=== PATIENT | female | born 1990 | race Hispanic/Latino ===

== ENCOUNTER → 2023-08-21 | Outpatient (CLI) | payer MEDICAID | END | disposition home or self-care (01) | LOC: LAB 15:39 | PROVIDERS: ATTEND Surgery | DX: E66.01 Morbid (severe) obesity due to excess calories (principal); G47.33 Obstructive sleep apnea (adult) (pediatric); M19.91 Primary osteoarthritis, unspecified site; E11.9 Type 2 diabetes mellitus without complications; J45.909 Unspecified asthma, uncomplicated; Z99.89 Dependence on other enabling machines and devices; Z68.43 Body mass index [BMI] 50.0-59.9, adult | CPT/HCPCS: 36415; 80053; 80061; 82306; 82607; 82746; 83036; 83540; 83550; 83735; 84207; 84425; 84436; 84443; 84481; 84590; 84630; 85025 ==

== ENCOUNTER → 2023-08-21 | Outpatient (CLI) | payer OTHER ==
[~2023-08-21] VITALS: Ht 2.5 cm; Wt 123.8 kg
[2023-08-21 11:37] LABS: BASOPHILS # (AUTO) 0.04 K/uL (0.00-0.20); BASOPHILS % (AUTO) 0.4 % (0.0-5.0); EOSINOPHILS # (AUTO) 0.16 K/uL (0.00-0.70); EOSINOPHILS % (AUTO) 1.7 % (0.0-8.0); IMMATURE GRANULOCYTE ABSOLUTE 0.02 K/uL (0-1); LYMPHOCYTES # (AUTO) 2.9 K/uL (1.0-4.8); LYMPHOCYTES % (AUTO) 31.1 % (21.0-51.0); MEAN CORPUSCULAR HEMOGLOBIN 25.8 pg (27.0-33.0); MEAN CORPUSCULAR HGB CONC 32.1 g/dL (32.0-36.0); MEAN CORPUSCULAR VOLUME 80.6 fL (79-99); MONOCYTES # (AUTO) 0.6 K/uL (0.1-1.0); MONOCYTES % (AUTO) 6.2 % (3.0-13.0); NEUTROPHILS # (AUTO) 5.5 K/uL (1.8-7.7); NEUTROPHILS % (AUTO) 60.4 % (40.0-77.0); PLATELET COUNT (AUTO) 292 K/uL (130-400); RED BLOOD CELL COUNT(AUTO) 4.84 MIL/uL (4.00-5.50); RED CELL DISTRIBUTION WIDTH 14.5 % (11.0-15.5); WHITE BLOOD COUNT (AUTO) 9.2 K/uL (4.8-10.8)
[2023-08-21 11:54] LABS: HEMOGLOBIN A1C 6.1 % (4.0-6.0)
[2023-08-21 12:04] LABS: % IRON SATURATION 8.8 % (22-44)
[2023-08-21 12:59] LABS: ALBUMIN 3.5 g/dL (3.5-5.0); BILIRUBIN,TOTAL 0.3 mg/dL (0.2-1.0); CREATININE 0.6 mg/dL (0.5-1.0); MAGNESIUM 2.1 mg/dL (1.80-2.40); POTASSIUM 4.3 mmol/L (3.5-5.1); T4 (THYROXINE) 9.3 ug/dL (4.7-13.3); THYROID STIMULATING HORMONE 1.94 uIU/mL (0.36-3.74); TOTAL PROTEIN, SERUM 8.1 g/dL (6.0-8.3)
== END | disposition home or self-care (01) ==
LOC: DTH 09:31
PROVIDERS: ATTEND Surgery
DX: E66.01 Morbid (severe) obesity due to excess calories (principal); E11.9 Type 2 diabetes mellitus without complications; G47.33 Obstructive sleep apnea (adult) (pediatric); M19.91 Primary osteoarthritis, unspecified site
CPT/HCPCS: 36415; 80053; 80061; 82306; 82607; 82746; 83036; 83540; 83550; 83735; 84207; 84425; 84436; 84443; 84481; 84590; 84630; 85025; 97802

== ENCOUNTER → 2023-09-18 | Outpatient (CLI) | payer OTHER | END | disposition home or self-care (01) | LOC: EDUNIT# 10:00 → DTH 12:22 | PROVIDERS: ATTEND Surgery | DX: R63.4 Abnormal weight loss (principal) | CPT/HCPCS: 97803 ==

== ENCOUNTER 2024-08-16 16:42 | Emergency (ER) | payer MEDICAID, OTHER ==
[~2024-08-16] VITALS: Ht 154.9 cm; Wt 116.7 kg
--- NOTE | 2024-08-16 17:14 | ERN ---
ED Note History of Present Illness Stated Complaint: ANIXIETY, HEADACHE Chief Complaint: Anxiety/Panic Attack Time Seen by MD: 16:44 Time Seen by Midlevel: 16:55 Dictation: Ms. Lincoln is a 34 year old female with history of depression, anxiety, asthma, and morbid obesity who transported via EMS to the emergency department this afternoon for evaluation of anxiety. Patient is a client of the [facility]. She has been suffering with depression. She states she has been unable to eat or sleep. She states she has been crying for several days. She is chewing on the tips of her fingers. She reports headache, fatigue, general weakness, and body aches. She appears dehydrated. She states she is not currently taking any medications. She states she requested no medications because she sees what it does to other people. She denies having fever, chills, shortness of breath, cough, chest pain, palpitations, edema, abdominal pain, vomiting, diarrhea, dysuria, or dizziness. She denies intent to harm self or others. Allergies: Coded Allergies: No Known Allergies (Unverified Allergy, Unknown, 08/16/24) Past Medical History Past Medical History: Anxiety, Asthma, Depression Surgical History: PSYCH History: anxiety, depression LMP: Aug 09, 2024 RN Note Reviewed/Agreed w/PFSH: Yes Review of System Dictation REVIEW OF SYSTEMS: CONSTITUTIONAL: Patient denies fevers, chills, sweats and weight changes. Reports fatigue and general weakness EYES: Patient denies any visual symptoms. EARS, NOSE, AND THROAT: No difficulties with hearing. No symptoms of rhinitis or sore throat. CARDIOVASCULAR: Patient denies chest pains, palpitations, orthopnea and paroxysmal nocturnal dyspnea. RESPIRATORY: No dyspnea on exertion, no wheezing reports occasional cough GI: No vomiting, diarrhea, constipation, abdominal pain, hematochezia or melena. Reports nausea and decreased appetite : No urinary hesitancy or dribbling. No nocturia or urinary frequency. No abnormal urethral discharge. MUSCULOSKELETAL: No myalgias or arthralgias. NEUROLOGIC: No chronic headaches, no seizures. Patient denies numbness, tingling or weakness. Reports headache all over PSYCHIATRIC Reports anxiety and insomnia. States she has been depressed. She denies intent to harm self or others. ENDOCRINE: No excessive urination or excessive thirst. DERMATOLOGIC: Patient denies any rashes or skin changes. Initial Vital Sign VS Vital Signs Date Time Temp Pulse Resp B/P (MAP) Pulse Ox O2 Delivery O2 Flow Rate FiO2 08/16/24 16:45 98.4 98 16 150/100 97 Room Air 0 08/16/24 18:26 21 Physical Exam Dictation Vital signs: Reviewed. Afebrile Constitutional: Moderate distress; tearful Head/Face: Normocephalic, atraumatic. Eyes: Periorbital areas with no swelling, redness, or edema. Lids and lashes are normal. Conjunctival injection is absent. Sclera anicteric. Pupils equal, round, reactive to light. ENT: Pinnas intact and no signs of trauma or erythema. Ear canals clear and no discharge. TMs no erythema. No nasal discharge or bleeding noted. Oropharynx with no exudate, redness, swelling, masses, exudates, or evidence of obstruction. Uvula midline. Mucous membranes dry. Lips dry/cracked Neck: Trachea midline, no masses palpated, and no cervical lymphadenopathy. No swelling. Supple, full range of motion. Chest/Axilla: No tenderness, no crepitus, no paradoxical movement, no re tractions. Cardiovascular: Regular rate, regular rhythm, no murmur, no gallops. Symmetric pulses. No peripheral edema. BP elevated 150/100 Respiratory: Respirations even and unlabored. Lung sounds clear; no wheezes, rales or rhonchi. Loose cough noted. Room air SpO2 97%. Gastrointestinal: Obese No distention is appreciated. Bowel sounds are normal. No mass or organomegaly . There is no tenderness. No rebound. No rigidity. No voluntary or involuntary guarding. No Sharma's sign. : urine concentrated/dark/paddy Neurological: Normal speech, gross motor function intact, gross sensory function intact. No focal weakness/Paresthesia. Musculoskeletal/Extremities: All extremities have full range of motion, no pain or tenderness on palpation. Symmetric pulses. Integumentary: Skin is flushed, warm and dry. Cap refill less than 2 seconds. Tips of fingers irritated; has been chewing/peeling the skin. Results (Laboratory/Radiology) Laboratory/Radiology Laboratory Tests Test 08/16/24 17:11 08/16/24 17:43 08/16/24 18:46 Urine Color YELLOW (YELLOW) Urine Appearance CLEAR (CLEAR) Urine pH 6.0 (5.0-8.0) Urine Specific [place] 1.019 (1.001-1.031) Urine Protein 30 mg/dL (NEGATIVE) H Urine Glucose (UA) NEGATIVE mg/dL (NEGATIVE) Urine Ketones 5 mg/dL (NEGATIVE) H Urine Occult Blood MODERATE (NEGATIVE) H Urine Nitrate 2+ (NEGATIVE) H Urine Bilirubin NEGATIVE mg/dL (NEGATIVE) Urine Urobilinogen 0.2 mg/dL (0.2-1.0) Urine Leukocyte Esterase NEGATIVE Phyllis/uL Urine RBC 2-5 /HPF (0-1) H Urine WBC 6-10 /HPF (0-1) H Urine Squamous Epithelial Cells RARE /HPF (0-2) Urine Bacteria RARE /HPF (None Seen) Urine Other Casts 3 /LPF (None Seen) Urine Opiates Screen NEGATIVE (NEGATIVE) Urine Barbiturates Screen NEGATIVE (NEGATIVE) Urine Phencyclidine Screen NEGATIVE (NEGATIVE) Urine Amphetamines Screen NEGATIVE (NEGATIVE) Urine Benzodiazepines Screen NEGATIVE (NEGATIVE) Urine Cocaine Screen NEGATIVE (NEGATIVE) Urine Marijuana (THC) Screen NEGATIVE (NEGATIVE) White Blood Count 10.1 K/uL (4.8-10.8) Red Blood Count 4.39 MIL/uL (4.00-5.50) Hemoglobin 11.4 g/dL (12.0-16.0) L Hematocrit 36.2 % (36-48) Mean Corpuscular Volume 82.5 fL (79-99) Mean Corpuscular Hemoglobin 26.0 pg (27.0-33.0) L Mean Corpuscular Hemoglobin Concent 31.5 g/dL (32.0-36.0) L Red Cell Distribution Width 15.3 % (11.0-15.5) Platelet Count 424 K/uL (130-400) H Mean Platelet Volume 10.3 fL (7.5-10.5) Immature Granulocyte % (Auto) 0.3 % (0-1) Neutrophils (%) (Auto) 57.1 % (40.0-77.0) Lymphocytes (%) (Auto) 33.3 % (21.0-51.0) Monocytes (%) (Auto) 7.0 % (3.0-13.0) Eosinophils (%) (Auto) 1.9 % (0.0-8.0) Basophils (%) (Auto) 0.4 % (0.0-5.0) Neutrophils # (Auto) 5.8 K/uL (1.8-7.7) Lymphocytes # (Auto) 3.4 K/uL (1.0-4.8) Monocytes # (Auto) 0.7 K/uL (0.1-1.0) Eosinophils # (Auto) 0.19 K/uL (0.00-0.70) Basophils # (Auto) 0.04 K/uL (0.00-0.20) Absolute Immature Granulocyte (auto 0.03 K/uL (0-1) Nucleated Red Blood Cells 0.0 % (0.0-0.19) Sodium Level 134 mmol/L (136-145) L Potassium Level 3.3 mmol/L (3.5-5.1) L Chloride Level 97 mmol/L (101-111) L Carbon Dioxide Level 28 mmol/L (21-32) Blood Urea Nitrogen 4 mg/dL (7-18) L Creatinine 0.7 mg/dL (0.5-1.0) Glomerular Filtration Rate Calc 115 mL/min (>90) Random Glucose 99 mg/dL (70-105) Total Calcium 8.9 mg/dL (8.5-10.1) Total Bilirubin 0.4 mg/dL (0.2-1.0) Direct Bilirubin 0.1 mg/dL (0.0-0.3) Aspartate Amino Transf (AST/SGOT) 14 U/L (10-37) Alanine Aminotransferase (ALT/SGPT) 16 U/L (12-78) Alkaline Phosphatase 85 U/L (50-136) Total Creatine Kinase 64 U/L (21-232) Total Protein 8.2 g/dL (6.0-8.3) Albumin 3.7 g/dL (3.5-5.0) Salicylates Level < 2.8 mg/dL (2.8-20.0) L Acetaminophen Level < 1 mcg/mL (10-30) L Serum Alcohol < 3 mg/dL (0-10) Influenza Type A Antigen Negative For Type A Influenza Type B Antigen Negative For Type B SARS-CoV-2, RNA, NAAT NEGATIVE SARS CoV-2 Group A Streptococcus Rapid negative (NEGATIVE) Labs Reviewed?: Yes ED Course ED Course Orders Procedure Category Date Status Time Influenza Type A & B, LAB 08/16/24 Complete Rapid 16:58 Covid Rna Naat LAB 08/16/24 Complete 16:58 Urinalysis Profile LAB 08/16/24 Complete 16:58 Rapid (Group A Strep) LAB 08/16/24 Complete 16:58 Ondansetron Odt 4mg PHA 08/16/24 Complete Tab (Zofran 4mg Odt) 17:00 Ibuprofen 600 Mg PHA 08/16/24 Complete Tablet (Motrin) 17:00 Alcohol, Blood LAB 08/16/24 Complete 17:07 Drug Screen Urine LAB 08/16/24 Complete 17:07 Salicylate LAB 08/16/24 Complete 17:07 Acetaminophen LAB 08/16/24 Complete 17:07 Creatine Kinase, Total LAB 08/16/24 Complete 17:20 0.9%Nacl 1000ml (Ns PHA 08/16/24 Complete 1000ml) 17:30 Lorazepam 2 Mg PHA 08/16/24 Complete (Ativan) 18:00 Culture Urine MIKE 08/16/24 In Process 17:44 Ceftriaxone 1g Vial PHA 08/16/24 Complete (Rocephine 1g Inj) 18:00 Cbc With Differential LAB 08/16/24 Complete 18:34 Basic Metabolic Panel LAB 08/16/24 Complete 18:34 Hepatic Function Panel LAB 08/16/24 Complete 18:34 Albuterol 0.083% PHA 08/17/24 Complete 2.5mg/3ml (Proventil 01:00 0.9%Nacl 1000ml (Ns PHA 08/17/24 In Process 1000ml) 01:00 Current Medications Medications (Trade) Dose Ordered Sig/Jhony Route PRN Reason Start Time Stop Time Status Last Admin Dose Admin Albuterol Sulfate (Proventil 0.083% 2.5mg/3ml) 2.5MG ONCE ONCE IH 08/17/24 01:00 08/17/24 01:01 DC 08/17/24 01:09 Ceftriaxone Sodium (ROCEphine 1G INJ) 1 gm ONCE ONCE IVPB 08/16/24 18:00 08/16/24 18:01 DC 08/16/24 18:19 Ibuprofen (moTRIN) 600 mg ONCE ONCE PO 08/16/24 17:00 08/16/24 17:05 DC 08/16/24 18:19 Lorazepam (AtiVAN) 0.5 mg ONCE ONCE IVP 08/16/24 18:00 08/16/24 18:01 DC 08/16/24 18:29 Ondansetron HCl (zoFRAN 4MG ODT) 4 mg ONCE ONCE SL 08/16/24 17:00 08/16/24 17:05 DC 08/16/24 18:19 Sodium Chloride 1,000 ml @ 0 mls/hr ONCE ONCE IV 08/16/24 17:30 08/16/24 17:31 DC 08/16/24 18:18 Sodium Chloride 1,000 ml @ 0 mls/hr Q0M IV 08/17/24 01:00 09/16/24 00:59 08/17/24 01:24 Vital Signs Date Time Temp Pulse Resp B/P (MAP) Pulse Ox O2 Delivery O2 Flow Rate FiO2 08/17/24 01:10 95 18 08/16/24 18:26 98.6 84 20 132/86 100 Room Air* 0 21 08/16/24 16:45 98.4 98 16 150/100 97 Room Air 0 On arrival blood pressure was elevated to 150/100; anxious and hyperventilating. Afebrile with room air SpO2 97-100%. Laboratory findings as noted below. UDS negative. COVID, strep, and influenza A/B negative. UDS negative. UA cloudy; + protein, ketones, blood, nitrite and UWBC 6-10. UCX pending. K 3.3 and Na/Cl 134/97. Troponin negative. She received dose Ativan 0.5 mg IV for a anxiety and ibuprofen 600 mg for headache.. She rested for several hours; calm and cooperative. She received 2000 mL NS bolus as well as initial dose Rocephin for diagnosis UTI. She requested nebulizer treatment for wheezing; lung sounds clear. When she woke she ate a meal and has been drinking water. Patient medically clear and was evaluated by [facility] psych screener. The recommendations are for her to return to [facility] and follow up with them on an outpatient basis. She continues to deny intention to harm self or others. Medical Decision Making MDM MDM: Differential diagnosis: Influenza, strep, COVID, major depression, suicidal ideation Rationale: Tests considered and ordered secondary to shared decision making include: lab, x-ray, psych screening Previous outside records reviewed: Old ER visits. Risk of complication and/or morbidity or mortality of patient management: None Medications-Per medication reconciliation Need for hospitalization: Patient does not meet criteria for hospitalization. Need for emergency major/minor surgery: No There are no social concerns with this patient. Prescription drug management: Cephalexin Prescriptions will include symptomatic care Patient's prior external medical records from other ER visits were reviewed by me as indicated. Prior testing and results from previous visits were reviewed. Prior tests were taken into account with medical decision making and resource utilization, independent historian/historians were used to obtain complete medical history. I independently interpreted the test that were performed, results were reviewed by me and considered findings on radiology if ordered. Medical management and examination interpretation discussions were had by me with other qualified healthcare professionals as indicated for the patient's care. DX & DISP Disposition: Discharge Departure Impression: Primary Impression: Depression Additional Impressions: Anxiety reaction, Dehydration, UTI (urinary tract infection) Condition: Stable Scripts Cephalexin (Cephalexin) 500 Mg Tablet 500 MG PO B.i.d. for 7 Days, #14 TAB 0 Refills Prov: ADAM CARRION NP 08/17/24 Additional Instructions: Return to [facility]. Rest. Drink plenty of fluids. Continue antibiotics for urinary tract infection; cephalexin 500 mg twice daily x seven days. May take [id number] Tylenol or ibuprofen as needed for discomfort or fever. Follow up with your primary care physician in the next week. Return to the emergency department for worsening of symptoms or concerns. As discussed with the psych screener, you will need to follow up with [facility] as outpatient. Referrals: SELF,REFERRAL (PCP) Time of Disposition: 02:40 ADAM CARRION NP Aug 16, 2024 17:14
[2024-08-16 17:27] LABS: APPEARANCE,URINE CLEAR (CLEAR); BILIRUBIN,URINE NEGATIVE (NEGATIVE); COLOR,URINE YELLOW (YELLOW); GLUCOSE, URINE (UA) NEGATIVE (NEGATIVE); KETONES,URINE 5 mg/dL (NEGATIVE); LEUKOCYTE ESTERASE ,URINE NEGATIVE Leu/uL (NEGATIVE); NITRATE,URINE 2+ (NEGATIVE); OCCULT BLOOD,URINE MODERATE (NEGATIVE); PROTEIN,URINE 30 mg/dL (NEGATIVE); UROBILINOGEN,URINE 0.2 mg/dL (0.2-1.0)
[2024-08-16 17:29] LABS: AMPHET/METH SCREEN,URINE NEGATIVE (NEGATIVE); BARBITURATE SCREEN, URINE NEGATIVE (NEGATIVE); BENZODIAZEPINES SCREEN,URINE NEGATIVE (NEGATIVE); CANNABINOID SCREEN,URINE NEGATIVE (NEGATIVE); COCAINE SCREEN,URINE NEGATIVE (NEGATIVE); OPIATE SCREEN,URINE NEGATIVE (NEGATIVE); PHENCYCLIDINE SCREEN,URINE NEGATIVE (NEGATIVE)
[2024-08-16 17:43] LABS: ADD UA MICROSCOPIC YES
[2024-08-16 17:45] LABS: BACTERIA,URINE RARE /HPF (None Seen); MUCUS,URINE FEW LPF (None Seen); OTHER CASTS, URINE 3 /LPF (None Seen); SQUAMOUS EPITHELIAL CELL,UR RARE /HPF (0-2)
[2024-08-16 18:12] LABS: ALCOHOL, BLOOD < 3 mg/dL (0-10)
[2024-08-16 18:18] LABS: ACETAMINOPHEN < 1 mcg/mL (10-30); SALICYLATE < 2.8 mg/dL (2.8-20.0)
[2024-08-16] MEDS: 0.9%NACL 1000ML 1,000 ML IV ONE (18:18)
[2024-08-16] MEDS: ondanSETRON ODT 4MG TAB SL ONE (18:19)
[2024-08-16] MEDS: cefTRIAXone 1G VIAL IVPB ONE (18:19)
[2024-08-16] MEDS: ibuPROFEN 600 MG TABLET PO ONE (18:19)
[2024-08-16] MEDS: LORazepam 2 MG/ML 1 ML VIAL IVP ONE (18:29)
[2024-08-16 18:59] LABS: BASOPHILS # (AUTO) 0.04 K/uL (0.00-0.20); BASOPHILS % (AUTO) 0.4 % (0.0-5.0); EOSINOPHILS # (AUTO) 0.19 K/uL (0.00-0.70); EOSINOPHILS % (AUTO) 1.9 % (0.0-8.0); HEMATOCRIT 36.2 % (36-48); IMMATURE GRANULOCYTE ABSOLUTE 0.03 K/uL (0-1); LYMPHOCYTES # (AUTO) 3.4 K/uL (1.0-4.8); LYMPHOCYTES % (AUTO) 33.3 % (21.0-51.0); MEAN CORPUSCULAR HGB CONC 31.5 g/dL (32.0-36.0); MEAN CORPUSCULAR VOLUME 82.5 fL (79-99); MONOCYTES # (AUTO) 0.7 K/uL (0.1-1.0); NEUTROPHILS # (AUTO) 5.8 K/uL (1.8-7.7); NEUTROPHILS % (AUTO) 57.1 % (40.0-77.0); PLATELET COUNT (AUTO) 424 K/uL (130-400); RED BLOOD CELL COUNT(AUTO) 4.39 MIL/uL (4.00-5.50); RED CELL DISTRIBUTION WIDTH 15.3 % (11.0-15.5); WHITE BLOOD COUNT (AUTO) 10.1 K/uL (4.8-10.8)
--- NOTE | 2024-08-16 19:00 | NUR ---
PT CONTINUES IN ER2, NO SIGNS OF ACUTE DISTRESS NOTED, PT RESTING IN POSTION OF COMFORT, DENIES NEEDS AT THIS TIME, A&OX4, GCS 15, RESP EVEN AND UNLABORED ON RA
[2024-08-16 19:04] LABS: CREATININE 0.7 mg/dL (0.5-1.0); POTASSIUM 3.3 mmol/L (3.5-5.1)
[2024-08-16 19:08] LABS: ALBUMIN 3.7 g/dL (3.5-5.0); BILIRUBIN,DIRECT 0.1 mg/dL (0.0-0.3); BILIRUBIN,TOTAL 0.4 mg/dL (0.2-1.0); TOTAL PROTEIN, SERUM 8.2 g/dL (6.0-8.3)
[2024-08-16 19:08] LABS: RAPID GROUP A STREP negative (NEGATIVE)
[2024-08-16 19:09] LABS: SARS-CoV-2, RNA, NAAT NEGATIVE SARS CoV-2 (NEGATIVE)
[2024-08-16 19:12] LABS: INFLUENZA TYPE A Negative For Type A (NEGATIVE); INFLUENZA TYPE B Negative For Type B (NEGATIVE)
--- NOTE | 2024-08-16 19:26 | NUR ---
[facility] CRISIS LINE CALLED.
--- NOTE | 2024-08-16 20:00 | NUR ---
PENDING TROPICAL SCREENING AT THIS TIME, PT CONTINUES IN ER2, NO SIGNS OF ACUTE DISTRESS NOTED, PT RESTING IN POSTION OF COMFORT, A&OX4, GCS 15, RESP EVEN AND UNLABORED ON RA
[2024-08-17] MEDS: ALBUTEROL 0.083% 2.5 MG/3 ML INH IH ONE (01:09)
[2024-08-17 01:10] VITALS: PULSE 95; RESP 18
[2024-08-17] MEDS: 0.9%NACL 1000ML 1,000 ML IV SCH (01:24)
--- NOTE | 2024-08-17 01:25 | NUR ---
TROPICAL SCREENER AT BEDSIDE
--- NOTE | 2024-08-17 02:15 | NUR ---
PER TROPICAL SCREENER PT IS OKAY TO RETURN TO [facility] AND FOLLOW UP WITH TROPICAL OUTPATIENT.
[2024-08-17 02:36] VITALS: BP 138/73; PULSE 79; RESP 18; TEMP 98.3; O2SAT 100
[2024-08-17] MEDS ORDERED: CEPH500T PO (02:39)
== END 2024-08-17 03:16 | disposition home or self-care (01) ==
LOC: EDH 16:42
DX: F32.A Depression, unspecified (principal); F41.1 Generalized anxiety disorder; E86.0 Dehydration; N39.0 Urinary tract infection, site not specified; J45.909 Unspecified asthma, uncomplicated; Z20.822 Contact with and (suspected) exposure to COVID-19
CPT/HCPCS: 99285; 96365; 87635; 96361; 96375; 82550; 80076; 80048; 80305; 85025; 87086 ×2; 87186; 87880; 87804 ×2; 81001; 36415; 94640; G0481; J7030; J0696; J2060